=== PATIENT | male | born 1940 | race Two or more races ===

== ENCOUNTER 2016-12-02 15:53 | Inpatient (IN) | payer OTHER, MEDICAID ==
[~2016-12-02] VITALS: Ht 170.2 cm; Wt 85.3 kg
[~2016-12-02 15:53] MED LIST: UNK MEDS
[2016-12-02] MEDS ORDERED: GLIPIZIDE (16:01)
[2016-12-02] MEDS ORDERED: HYDROCHLOROTHIAZIDE (16:01)
[2016-12-02] MEDS ORDERED: ISOSORBIDE DINITRATE (16:01)
[2016-12-02] MEDS ORDERED: ALBUTEROL (16:01)
[2016-12-02] MEDS ORDERED: AMLODIPINE (16:01)
[2016-12-02 16:46] LABS: BASOPHILS % 0.7 % (0.0-2.0); EOSINOPHILS % 0.6 % (0.0-5.0); HEMATOCRIT. 34.8 % (42.0-52.0); HEMOGLOBIN. 11.9 g/dL (14.0-18.0); LYMPHOCYTES % 8.8 % (20.0-50.0); MEAN CORPUSCULAR HEMOGLOBIN 31.7 pg (28.0-32.0); MEAN CORPUSCULAR VOLUME 92.7 fL (80.0-94.0); MEAN PLATELET VOLUME 7.2 fl (7.4-10.4); MONOCYTES % 7.9 % (2.0-8.0); PLATELET 157 x1000/uL (130-400); RED BLOOD CELL COUNT 3.76 mill/uL (4.7-6.1)
[2016-12-02 16:51] LABS: INR 2.1; PROTHROMBIN TIME 21.7 sec
[2016-12-02 16:57] LABS: CARBON DIOXIDE 24 mEq/L (21-32); CHLORIDE 108 mEq/L (98-107)
[2016-12-02 17:01] LABS: TROPONIN I < 0.02 ng/mL (0.00-0.04)
[2016-12-02] MEDS ORDERED: FUROSEMIDE 40MG/4ML VIAL IV ONE (17:15)
[2016-12-02] MEDS ORDERED: LORAZEPAM 2MG/ML CPJ IV ONE (17:15)
[2016-12-02] MEDS ORDERED: ASPIRIN 81MG TABLET PO ONE (17:15)
[2016-12-02] MEDS ORDERED: NITROGLYCERIN 0.4MG TABLET SL SL ONE (17:30)
[2016-12-02 17:57] LABS: BG BASE EXCESS -4.8 mmol/L (-2.0-2.0); BG BILEVEL POS AIRWAY PRESSURE 15/5; BG CARBOXYHEMOGLOBIN 0.4 % (0.5-1.5); BG DEOXYHEMOGLOBIN 1.4 % (0.0-5.0); BG FRACTION INSPIRED OXYGEN 50; BG HCO3 ACT 18.1 mmol/L (22.0-26.0); BG METHEMOGLOBIN 0.4 % (0.0-1.5); BG OXYGEN SATURATION 98.6 % (92.0-98.5); BG OXYHEMOGLOBIN 97.8 % (94.0-97.0); BG PCO2 27.3 mmHg (35.0-45.0); BG PH 7.439 (7.350-7.450); BG PO2 159.4 mmHg (75.0-100.0); BG SAMPLE SITE RIGHT BRACHIAL; BG TOTAL HEMOGLOBIN 12.1 g/dL (12.0-18.0); BG VENT MODE MASK - BIPAP
[2016-12-02] MEDS ORDERED: HYDROCODONE/ACETAMINOPHEN 5/325MG TABLET PO PRN (18:45)
[2016-12-02] MEDS ORDERED: IPRATROPIUM/ALBUTEROL 0.5-3(2.5)MG/3ML NEB INH PRN (18:45)
[2016-12-02] MEDS ORDERED: HYDROMORPHONE HCL/PF 2MG/ML CPJ IV PRN (18:45)
[2016-12-02] MEDS ORDERED: DOCUSATE SODIUM 100MG CAPSULE PO PRN (18:45)
[2016-12-02] MEDS ORDERED: GUAIFENESIN 200MG/10ML SUGAR FREE UDC PO PRN (18:45)
[2016-12-02] MEDS ORDERED: NA PHOS,M-B/NA PHOS,DI-BA ENEMA 118ML PR PRN (18:45)
[2016-12-02] MEDS ORDERED: ONDANSETRON HCL 4MG/2ML VIAL IV PRN (18:45)
[2016-12-02] MEDS ORDERED: CLONIDINE 0.1MG TABLET PO PRN (18:45)
[2016-12-02] MEDS ORDERED: LORAZEPAM 2MG/ML CPJ IV PRN (18:45)
[2016-12-02] MEDS ORDERED: MAGNESIUM/ALUMINUM HYDROXIDE/SIMETHICONE 30ML UDC PO PRN (18:45)
[2016-12-02] MEDS ORDERED: ACETAMINOPHEN 325MG TABLET PO PRN (18:45)
[2016-12-02 21:05] VITALS: BP 123/67
[2016-12-02 22:00] VITALS: BP 123/63
[2016-12-02] MEDS: METHYLPREDNISOLONE SOD SUCC 125 MG/2 ML VIAL IV SCH (22:53)
[2016-12-02] MEDS: LEVOFLOXACIN 500MG PREMIX 100 ML IV SCH (23:54)
[2016-12-03] VITALS (12 sets, daily range): BP systolic 119–150; BP diastolic 61–88
[2016-12-03 00:21] LABS: TROPONIN I 0.03 ng/mL (0.00-0.04)
[2016-12-03] MEDS: DIPHENHYDRAMINE 50MG/ML VIAL IV PRN (00:55)
[2016-12-03] MEDS: METHYLPREDNISOLONE SOD SUCC 125 MG/2 ML VIAL IV SCH ×2 (04:55→09:54)
[2016-12-03] MEDS ORDERED: DEXTROSE 50% WATER 50ML SYRINGE IV PRN (05:45)
[2016-12-03 06:09] LABS: BASOPHILS % 0.3 % (0.0-2.0); HEMATOCRIT. 31.9 % (42.0-52.0); HEMOGLOBIN. 10.8 g/dL (14.0-18.0); LYMPHOCYTES % 9.6 % (20.0-50.0); MEAN CORPUSCULAR VOLUME 94.1 fL (80.0-94.0); MEAN PLATELET VOLUME 7.3 fl (7.4-10.4); MONOCYTES % 2.2 % (2.0-8.0); NEUTROPHILS % 87.9 % (40.0-76.0); PLATELET 137 x1000/uL (130-400); RED BLOOD CELL COUNT 3.39 mill/uL (4.7-6.1); RED CELL DISTRIBUTION WIDTH 14.7 % (11.6-14.6)
[2016-12-03 06:52] LABS: CARBON DIOXIDE 23 mEq/L (21-32); CHLORIDE 107 mEq/L (98-107)
[2016-12-03 07:03] LABS: HDL CHOLESTEROL 51 mg/dL (40-59); LDL CHOLESTEROL 68 mg/dL (5-100); T4 FREE 2.84 ng/dL (0.76-1.46); TROPONIN I < 0.02 ng/mL (0.00-0.04)
[2016-12-03] MEDS: BLOOD SUGAR DIAGNOSTIC STRIP TEST SCH ×4 (08:03→20:54)
[2016-12-03] MEDS: INSULIN LISPRO 100 UNITS/ML SUBCUT SCH ×4 (08:09→21:03)
[2016-12-03] MEDS ORDERED: FUROSEMIDE 40MG/4ML VIAL IV SCH (09:00)
[2016-12-03] MEDS: ASPIRIN 81MG EC TABLET PO SCH (09:21)
[2016-12-03] MEDS: ENOXAPARIN 30MG/0.3ML SYR SUBCUT SCH ×2 (09:24→20:56)
[2016-12-03 16:47] LABS: CREATINE KINASE 136 IU/L (39-308); CREATINE KINASE MB FRACTION 1.1 ng/mL (0.5-3.6); HDL CHOLESTEROL 53 mg/dL (40-59); LDL CHOLESTEROL 77 mg/dL (5-100); TROPONIN I < 0.02 ng/mL (0.00-0.04)
[2016-12-03] MEDS ORDERED: REGADENOSON 0.4 MG/5 ML IV NR (18:45)
[2016-12-03] MEDS: LEVOFLOXACIN 500MG PREMIX 100 ML IV SCH (23:55)
[2016-12-04] VITALS (8 sets, daily range): BP systolic 115–150; BP diastolic 59–77
[2016-12-04] MEDS: DIPHENHYDRAMINE 50MG/ML VIAL IV PRN (00:03)
[2016-12-04 01:23] LABS: CREATINE KINASE 106 IU/L (39-308); TROPONIN I < 0.02 ng/mL (0.00-0.04)
[2016-12-04 01:24] LABS: CREATINE KINASE MB FRACTION 1.3 ng/mL (0.5-3.6)
[2016-12-04 07:10] LABS: HEMATOCRIT. 33.9 % (42.0-52.0); HEMOGLOBIN. 11.7 g/dL (14.0-18.0); MEAN CORPUSCULAR HEMOGLOBIN 32.1 pg (28.0-32.0); MEAN CORPUSCULAR VOLUME 92.7 fL (80.0-94.0); MEAN PLATELET VOLUME 7.6 fl (7.4-10.4); PLATELET 164 x1000/uL (130-400); RED BLOOD CELL COUNT 3.66 mill/uL (4.7-6.1); RED CELL DISTRIBUTION WIDTH 14.7 % (11.6-14.6)
[2016-12-04] MEDS: BLOOD SUGAR DIAGNOSTIC STRIP TEST SCH ×3 (07:30→20:21)
[2016-12-04 08:02] LABS: CARBON DIOXIDE 25 mEq/L (21-32); CHLORIDE 107 mEq/L (98-107); CREATINE KINASE 79 IU/L (39-308); CREATINE KINASE MB FRACTION 1.3 ng/mL (0.5-3.6); TROPONIN I < 0.02 ng/mL (0.00-0.04)
[2016-12-04] MEDS: FUROSEMIDE 40MG/4ML VIAL IV SCH ×2 (08:37→17:16)
[2016-12-04] MEDS: ASPIRIN 81MG EC TABLET PO SCH (08:37)
[2016-12-04] MEDS: INSULIN LISPRO 100 UNITS/ML SUBCUT SCH ×4 (08:42→20:56)
[2016-12-04 08:48] LABS: PLATELET ESTIMATE NORMAL
[2016-12-04] MEDS ORDERED: RIVAROXABAN 20 MG TABLET PO SCH (17:00)
[2016-12-04] MEDS: GLIPIZIDE 10MG TABLET PO SCH (17:16)
[2016-12-04] MEDS: CARVEDILOL 25MG TABLET PO SCH (20:20)
[2016-12-04] MEDS ORDERED: TAMSULOSIN HCL 0.4MG SR CAPSULE PO SCH (21:00)
[2016-12-04] MEDS ORDERED: LEVOFLOXACIN 500MG PREMIX 100 ML IV SCH (21:00)
[2016-12-04] MEDS ORDERED: ZOLPIDEM TARTRATE 5MG TABLET PO PRN (21:00)
[2016-12-05] VITALS: BP 133/76
[2016-12-05 04:00] VITALS: BP 132/81
[2016-12-05] MEDS: BLOOD SUGAR DIAGNOSTIC STRIP TEST SCH (07:10)
[2016-12-05 07:15] LABS: BASOPHILS % 0.2 % (0.0-2.0); EOSINOPHILS % 0.1 % (0.0-5.0); HEMOGLOBIN. 12.7 g/dL (14.0-18.0); LYMPHOCYTES % 14.4 % (20.0-50.0); MEAN CORPUSCULAR HEMOGLOBIN 32.2 pg (28.0-32.0); MEAN CORPUSCULAR VOLUME 91.6 fL (80.0-94.0); MEAN PLATELET VOLUME 7.7 fl (7.4-10.4); MONOCYTES % 6.9 % (2.0-8.0); NEUTROPHILS % 78.4 % (40.0-76.0); PLATELET 190 x1000/uL (130-400); RED BLOOD CELL COUNT 3.93 mill/uL (4.7-6.1)
[2016-12-05 07:48] VITALS: BP 119/72
[2016-12-05 08:00] VITALS: BP 142/78
[2016-12-05] MEDS: ASPIRIN 81MG EC TABLET PO SCH (08:41)
[2016-12-05] MEDS: FUROSEMIDE 40MG/4ML VIAL IV SCH (08:41)
[2016-12-05] MEDS: CARVEDILOL 25MG TABLET PO SCH (08:57)
[2016-12-05] MEDS: GLIPIZIDE 10MG TABLET PO SCH (08:58)
[2016-12-05] MEDS ORDERED: POTASSIUM CHLORIDE 20MEQ TABLET SR PO NR (09:00)
[2016-12-05] MEDS: INSULIN LISPRO 100 UNITS/ML SUBCUT SCH (09:03)
[2016-12-05 10:28] VITALS: BP 119/72
[2016-12-06] MEDS ORDERED: LEVOFLOXACIN 500MG TABLET PO SCH (11:00)
== END 2016-12-05 11:40 | disposition home or self-care (01) | DRG 291 ==
LOC: ER 16:26 → 5EST 18:24 → ENRESERV 19:36 → 8WST 12-04 11:41
PROVIDERS: ADMIT Internal Medicine; ATTEND Internal Medicine
PROC: 5A09357 Assistance with Respiratory Ventilation, Less than 24 Consecutive Hours, Continuous Positive Airway Pressure (ICD-10-PCS; principal; 2016-12-02)
DX: I13.0 Hypertensive heart and chronic kidney disease with heart failure and stage 1 through stage 4 chronic kidney disease, or unspecified chronic kidney disease (principal); J96.00 Acute respiratory failure, unspecified whether with hypoxia or hypercapnia; I50.43 Acute on chronic combined systolic (congestive) and diastolic (congestive) heart failure; N17.0 Acute kidney failure with tubular necrosis; E46 Unspecified protein-calorie malnutrition; E87.2 Acidosis; I48.91 Unspecified atrial fibrillation; E11.22 Type 2 diabetes mellitus with diabetic chronic kidney disease; D64.9 Anemia, unspecified; E78.5 Hyperlipidemia, unspecified; J44.9 Chronic obstructive pulmonary disease, unspecified; M10.9 Gout, unspecified; Z79.01 Long term (current) use of anticoagulants; Z95.810 Presence of automatic (implantable) cardiac defibrillator; Z68.29 Body mass index [BMI] 29.0-29.9, adult; I25.2 Old myocardial infarction; Z87.440 Personal history of urinary (tract) infections; Z79.51 Long term (current) use of inhaled steroids; Z79.899 Other long term (current) drug therapy
CPT/HCPCS: 36415; 36600; 71010; 74000; 80048; 80053; 80061; 82375; 82550; 82553; 82805; 82962; 83036; 83605; 83880; 84439; 84443; 84484; 85025; 85379; 85610; 87040; 87086; 93005; 93306; 93970; 94660; 96374; 97162; 99291; A6261; J1200; J1650; J1815; J1940; J1956; J2060; J2930; J7030

== ENCOUNTER 2018-06-13 23:45 | Inpatient (IN) | payer OTHER, MEDICAID ==
[~2018-06-13] VITALS: Ht 167.6 cm; Wt 78.2 kg
[~2018-06-13 23:45] MED LIST changes: +ALBUTEROL; +AMLODIPINE; +BISM262T51 PO; +CARV25TA47 PO; +CLON0.1T MT; +DOCU240C PO; +ESOM40CA PO; +FURO40TA5 PO; +GLIMEPRIDE; +GLIPIZIDE; +HYDR-3280 PO; +HYDROCHLOROTHIAZIDE; +INSLIS SUBCUT; +ISOSORBIDE DINITRATE; +LOSA100T14 PO; +METF100092 PO; +MIRT15TA7 PO; +MOM PO; +SITA100T11 PO; +TRECIBA; +XARELTO
[2018-06-14] MEDS ORDERED: SODIUM CHLORIDE 0.9% 1,000 ML IV ONE ×2 (00:20→04:00)
[2018-06-14 00:48] LABS: EOSINOPHILS % 0.8 % (0.0-5.0); HEMATOCRIT. 45.8 % (42.0-52.0); HEMOGLOBIN. 15.5 g/dL (14.0-18.0); LYMPHOCYTES % 7.2 % (20.0-50.0); MEAN CORPUSCULAR HEMOGLOBIN 30.8 pg (28.0-32.0); MEAN CORPUSCULAR VOLUME 90.8 fL (80.0-94.0); MEAN PLATELET VOLUME 7.4 fl (7.4-10.4); MONOCYTES % 6.3 % (2.0-8.0); NEUTROPHILS % 84.7 % (40.0-76.0); PLATELET 281 x1000/uL (130-400); RED BLOOD CELL COUNT 5.05 mill/uL (4.7-6.1); RED CELL DISTRIBUTION WIDTH 16.1 % (11.6-14.6)
[2018-06-14 00:53] LABS: CHLORIDE 94 mEq/L (98-107)
[2018-06-14 01:01] LABS: BETA HYDROXYBUTYRATE 0.4 mMol/L (0.0-0.3)
[2018-06-14 01:19] LABS: INR 1.7
[2018-06-14 01:43] LABS: CLARITY URINE CLEAR (CLEAR); COLOR URINE DARK YELLOW (YELLOW); KETONES URINE NEGATIVE (NEGATIVE); LEUKOCYTE ESTERASE URINE NEGATIVE (NEGATIVE); NITRITE URINE NEGATIVE (NEGATIVE); OCCULT BLOOD URINE NEGATIVE (NEGATIVE); PROTEIN URINE NEGATIVE (NEGATIVE); SPECIFIC GRAVITY URINE 1.014 (1.005-1.030)
[2018-06-14] MEDS ORDERED: HALOPERIDOL LACTATE 5MG/ML VIAL IM ONE (01:45)
[2018-06-14] MEDS ORDERED: LORAZEPAM 2MG/ML CPJ IV NR (03:00)
[2018-06-14] MEDS ORDERED: INSULIN REGULAR (HUMULIN R) 300UNITS/3ML SUBCUT NR (03:00)
[2018-06-14] MEDS ORDERED: ONDANSETRON HCL 4MG/2ML INJ IV PRN (17:15)
[2018-06-14] MEDS ORDERED: IPRATROPIUM/ALBUTEROL 0.5-3(2.5)MG/3ML NEB INH PRN (17:15)
[2018-06-14] MEDS ORDERED: ACETAMINOPHEN 325MG TABLET PO PRN (17:15)
[2018-06-14] MEDS ORDERED: DEXTROSE 50% WATER 50ML SYRINGE IV PRN (17:15)
[2018-06-14] MEDS ORDERED: DIPHENHYDRAMINE 50MG/ML VIAL IV PRN (17:15)
[2018-06-14] MEDS ORDERED: LORAZEPAM 0.5MG TABLET PO PRN (17:15)
[2018-06-14] MEDS ORDERED: MAGNESIUM/ALUMINUM HYDROXIDE/SIMETHICONE 30ML UDC PO PRN (17:15)
[2018-06-14] MEDS ORDERED: CLONIDINE 0.1MG TABLET PO PRN (17:15)
[2018-06-14] MEDS ORDERED: INSULIN LISPRO 100 UNITS/ML SUBCUT SCH (18:20)
[2018-06-14] MEDS ORDERED: SODIUM CHLORIDE 0.9% 1,000 ML IV SCH (19:30)
[2018-06-14] MEDS ORDERED: LEVOFLOXACIN 500MG PREMIX 100 ML IV NR (19:31)
[2018-06-14] MEDS ORDERED: INSULIN GLARGINE UD 100 UNITS/ML SYR SUBCUT SCH (22:00)
[2018-06-14 23:20] VITALS: BP 117/60
[2018-06-15] VITALS: BP 117/60
[2018-06-15] MEDS: INSULIN GLARGINE UD 100 UNITS/ML SYR SUBCUT SCH ×2 (02:19→21:22)
[2018-06-15 04:07] VITALS: BP 144/63
[2018-06-15] MEDS: BLOOD SUGAR DIAGNOSTIC STRIP TEST SCH ×4 (07:20→21:19)
[2018-06-15 07:27] LABS: HEMATOCRIT. 38.5 % (42.0-52.0); HEMOGLOBIN. 12.9 g/dL (14.0-18.0); MEAN CORPUSCULAR HEMOGLOBIN 31.2 pg (28.0-32.0); MEAN PLATELET VOLUME 7.2 fl (7.4-10.4); PLATELET 203 x1000/uL (130-400); RED BLOOD CELL COUNT 4.14 mill/uL (4.7-6.1); RED CELL DISTRIBUTION WIDTH 16.2 % (11.6-14.6)
[2018-06-15 07:38] LABS: PHOSPHORUS 3.1 mg/dL (2.5-4.9)
[2018-06-15 08:00] VITALS: BP 117/58
[2018-06-15] MEDS: INSULIN LISPRO 100 UNITS/ML SUBCUT SCH ×4 (09:30→21:22)
[2018-06-15 12:00] VITALS: BP 100/80
[2018-06-15] MEDS ORDERED: POTASSIUM CHLORIDE INJ 40 MEQ in DEXT 5% WATER 500 ML IV NR (12:30)
[2018-06-15 16:00] VITALS: BP 112/54
[2018-06-15 16:36] LABS: PLATELET ESTIMATE NORMAL
[2018-06-15] MEDS: RIVAROXABAN 15 MG TABLET PO SCH (19:03)
[2018-06-15] MEDS ORDERED: LEVOFLOXACIN 500MG PREMIX 100 ML IV SCH (19:32)
[2018-06-15 20:00] VITALS: BP 129/62
[2018-06-15] MEDS: SODIUM CHL 0.45% + KCL 20MEQ/L 1,000 ML IV SCH (21:20)
[2018-06-16] VITALS: BP 128/57
[2018-06-16] MEDS: SODIUM CHL 0.45% + KCL 20MEQ/L 1,000 ML IV SCH ×2 (00:30→12:28)
[2018-06-16 04:00] VITALS: BP 141/70
[2018-06-16] MEDS: BLOOD SUGAR DIAGNOSTIC STRIP TEST SCH ×4 (06:43→21:03)
[2018-06-16] MEDS: INSULIN LISPRO 100 UNITS/ML SUBCUT SCH ×4 (07:50→21:05)
[2018-06-16 08:00] VITALS: BP 120/62
[2018-06-16 08:04] LABS: CHLORIDE 113 mEq/L (98-107)
[2018-06-16 08:10] LABS: BASOPHILS % 0.6 % (0.0-2.0); EOSINOPHILS % 2.3 % (0.0-5.0); HEMATOCRIT. 36.5 % (42.0-52.0); HEMOGLOBIN. 12.2 g/dL (14.0-18.0); LYMPHOCYTES % 7.7 % (20.0-50.0); MEAN CORPUSCULAR HEMOGLOBIN 30.9 pg (28.0-32.0); MEAN CORPUSCULAR VOLUME 92.8 fL (80.0-94.0); MEAN PLATELET VOLUME 7.2 fl (7.4-10.4); MONOCYTES % 7.9 % (2.0-8.0); NEUTROPHILS % 81.5 % (40.0-76.0); PLATELET 193 x1000/uL (130-400); RED BLOOD CELL COUNT 3.93 mill/uL (4.7-6.1); RED CELL DISTRIBUTION WIDTH 16.8 % (11.6-14.6)
[2018-06-16 08:17] LABS: PHOSPHORUS 1.5 mg/dL (2.5-4.9)
[2018-06-16] MEDS ORDERED: POTASSIUM CHLORIDE 20MEQ TABLET SR PO NR (10:30)
[2018-06-16] MEDS ORDERED: MAGNESIUM 2 G PREMIX 50 ML IV NR (11:00)
[2018-06-16 12:00] VITALS: BP 121/67
[2018-06-16] MEDS ORDERED: POTASSIUM PHOS,M-BASIC-D-BASIC 20 MMOL in DEXT 5% WATER 243.3333 ML IV NR (13:00)
[2018-06-16 15:21] LABS: CLARITY URINE CLEAR (CLEAR); COLOR URINE YELLOW (YELLOW); KETONES URINE NEGATIVE (NEGATIVE); LEUKOCYTE ESTERASE URINE NEGATIVE (NEGATIVE); NITRITE URINE NEGATIVE (NEGATIVE); OCCULT BLOOD URINE NEGATIVE (NEGATIVE); PROTEIN URINE NEGATIVE (NEGATIVE); SPECIFIC GRAVITY URINE 1.012 (1.005-1.030); UROBILINOGEN URINE 0.2 E.U./dL (0.2-1.0)
[2018-06-16] MEDS: RIVAROXABAN 15 MG TABLET PO SCH (17:51)
[2018-06-16] MEDS: POTASSIUM CHLORIDE INJ 30 MEQ in DEXT 5%/0.2% NACL 1,000 ML IV SCH ×2 (17:51→22:20)
[2018-06-16] MEDS ORDERED: FOLI-43 PO (19:50)
[2018-06-16] MEDS ORDERED: DESV50TA10 PO (19:50)
[2018-06-16] MEDS ORDERED: TAMS0.4C31 PO (19:50)
[2018-06-16] MEDS ORDERED: DULO30CA51 PO (19:50)
[2018-06-16] MEDS ORDERED: FEBU80TA PO (19:50)
[2018-06-16] MEDS ORDERED: METH2.5T PO (19:50)
[2018-06-16] MEDS ORDERED: FINA5TAB11 PO (19:50)
[2018-06-16 20:00] VITALS: BP 120/67
[2018-06-16] MEDS ORDERED: LEVOFLOXACIN 500MG PREMIX 100 ML IV SCH (20:00)
[2018-06-16] MEDS: INSULIN GLARGINE UD 100 UNITS/ML SYR SUBCUT SCH (22:20)
[2018-06-17 00:09] VITALS: BP 116/52
[2018-06-17 04:00] VITALS: BP 115/50
[2018-06-17 06:19] LABS: BASOPHILS % 0.3 % (0.0-2.0); HEMATOCRIT. 37.2 % (42.0-52.0); HEMOGLOBIN. 12.6 g/dL (14.0-18.0); LYMPHOCYTES % 8.8 % (20.0-50.0); MEAN CORPUSCULAR HEMOGLOBIN 31.8 pg (28.0-32.0); MEAN CORPUSCULAR VOLUME 93.9 fL (80.0-94.0); MEAN PLATELET VOLUME 7.3 fl (7.4-10.4); MONOCYTES % 9.7 % (2.0-8.0); NEUTROPHILS % 77.2 % (40.0-76.0); PLATELET 184 x1000/uL (130-400); RED BLOOD CELL COUNT 3.97 mill/uL (4.7-6.1); RED CELL DISTRIBUTION WIDTH 16.5 % (11.6-14.6)
[2018-06-17] MEDS: BLOOD SUGAR DIAGNOSTIC STRIP TEST SCH ×4 (06:33→20:35)
[2018-06-17] MEDS: POTASSIUM CHLORIDE INJ 30 MEQ in DEXT 5%/0.2% NACL 1,000 ML IV SCH (06:33)
[2018-06-17 06:38] LABS: PHOSPHORUS 1.3 mg/dL (2.5-4.9)
[2018-06-17 08:00] VITALS: BP 143/50
[2018-06-17] MEDS: INSULIN LISPRO 100 UNITS/ML SUBCUT SCH ×4 (08:32→20:35)
[2018-06-17] MEDS ORDERED: POTASSIUM PHOS,M-BASIC-D-BASIC 30 MMOL in DEXT 5% WATER 500 ML IV SCH (11:30)
[2018-06-17 12:00] VITALS: BP 132/63
[2018-06-17] MEDS: DEXT 5%/0.2% NACL 1,000 ML IV SCH ×2 (15:23→22:03)
[2018-06-17 16:00] VITALS: BP 123/73
[2018-06-17] MEDS: RIVAROXABAN 15 MG TABLET PO SCH (18:05)
[2018-06-17 20:00] VITALS: BP 129/63
[2018-06-17] MEDS: INSULIN GLARGINE UD 100 UNITS/ML SYR SUBCUT SCH (21:20)
[2018-06-18] VITALS: BP 126/66
[2018-06-18 04:00] VITALS: BP 120/63
[2018-06-18 07:00] LABS: BASOPHILS % 0.8 % (0.0-2.0); EOSINOPHILS % 4.9 % (0.0-5.0); HEMATOCRIT. 35.2 % (42.0-52.0); HEMOGLOBIN. 11.7 g/dL (14.0-18.0); LYMPHOCYTES % 10.7 % (20.0-50.0); MEAN CORPUSCULAR HEMOGLOBIN 31.1 pg (28.0-32.0); MEAN CORPUSCULAR VOLUME 93.3 fL (80.0-94.0); MONOCYTES % 12.5 % (2.0-8.0); NEUTROPHILS % 71.1 % (40.0-76.0); PLATELET 192 x1000/uL (130-400); RED BLOOD CELL COUNT 3.77 mill/uL (4.7-6.1); RED CELL DISTRIBUTION WIDTH 16.8 % (11.6-14.6)
[2018-06-18 07:24] LABS: PHOSPHORUS 1.8 mg/dL (2.5-4.9)
[2018-06-18] MEDS: INSULIN LISPRO 100 UNITS/ML SUBCUT SCH ×4 (07:50→20:46)
[2018-06-18 08:00] VITALS: BP 110/40
[2018-06-18 12:00] VITALS: BP 89/59
[2018-06-18] MEDS ORDERED: MAGNESIUM 2 G PREMIX 50 ML IV NR ×2 (12:00→21:00)
[2018-06-18] MEDS: BLOOD SUGAR DIAGNOSTIC STRIP TEST SCH ×3 (12:20→20:41)
[2018-06-18] MEDS: POTASSIUM PHOS,M-BASIC-D-BASIC 30 MMOL in DEXT 5% WATER 500 ML IV NR ×2 (12:26→13:21)
[2018-06-18] MEDS: DEXT 5%/0.2% NACL 1,000 ML IV SCH (13:24)
[2018-06-18 16:00] VITALS: BP 128/66
[2018-06-18] MEDS ORDERED: LEVOFLOXACIN 250MG PREMIX 50 ML IV SCH ×2 (16:00→22:30)
[2018-06-18] MEDS: RIVAROXABAN 15 MG TABLET PO SCH (17:30)
[2018-06-18 20:45] VITALS: BP 130/68
[2018-06-18] MEDS: INSULIN GLARGINE UD 100 UNITS/ML SYR SUBCUT SCH (21:12)
[2018-06-19] VITALS: BP 119/60
[2018-06-19] MEDS: DEXT 5%/0.2% NACL 1,000 ML IV SCH ×2 (01:18→14:35)
[2018-06-19 04:00] VITALS: BP 130/86
[2018-06-19] MEDS: BLOOD SUGAR DIAGNOSTIC STRIP TEST SCH ×4 (06:20→21:02)
[2018-06-19 06:36] LABS: BASOPHILS % 0.8 % (0.0-2.0); HEMATOCRIT. 34.8 % (42.0-52.0); HEMOGLOBIN. 11.8 g/dL (14.0-18.0); LYMPHOCYTES % 12.7 % (20.0-50.0); MEAN CORPUSCULAR HEMOGLOBIN 31.6 pg (28.0-32.0); MEAN PLATELET VOLUME 6.9 fl (7.4-10.4); MONOCYTES % 12.3 % (2.0-8.0); NEUTROPHILS % 68.2 % (40.0-76.0); PLATELET 219 x1000/uL (130-400); RED BLOOD CELL COUNT 3.74 mill/uL (4.7-6.1); RED CELL DISTRIBUTION WIDTH 16.7 % (11.6-14.6)
[2018-06-19 07:26] LABS: PHOSPHORUS 2.6 mg/dL (2.5-4.9)
[2018-06-19 08:00] VITALS: BP 131/44
[2018-06-19] MEDS: INSULIN LISPRO 100 UNITS/ML SUBCUT SCH ×4 (09:44→21:03)
[2018-06-19 12:43] VITALS: BP 139/78
[2018-06-19] MEDS: RIVAROXABAN 15 MG TABLET PO SCH (16:40)
[2018-06-19 17:06] VITALS: BP 146/83
[2018-06-19 20:00] VITALS: BP 128/57
[2018-06-19] MEDS: LEVOFLOXACIN 250MG PREMIX 50 ML IV SCH (21:02)
[2018-06-19] MEDS: INSULIN GLARGINE UD 100 UNITS/ML SYR SUBCUT SCH (21:03)
[2018-06-20] VITALS: BP 116/53
[2018-06-20 04:00] VITALS: BP 116/59
[2018-06-20] MEDS: BLOOD SUGAR DIAGNOSTIC STRIP TEST SCH ×4 (06:39→21:40)
[2018-06-20] MEDS: INSULIN LISPRO 100 UNITS/ML SUBCUT SCH ×4 (07:39→21:49)
[2018-06-20 08:00] VITALS: BP 123/69
[2018-06-20 09:19] LABS: BASOPHILS % 0.9 % (0.0-2.0); HEMATOCRIT. 35.2 % (42.0-52.0); HEMOGLOBIN. 11.9 g/dL (14.0-18.0); LYMPHOCYTES % 14.1 % (20.0-50.0); MEAN CORPUSCULAR HEMOGLOBIN 31.6 pg (28.0-32.0); MEAN CORPUSCULAR VOLUME 93.4 fL (80.0-94.0); MEAN PLATELET VOLUME 7.1 fl (7.4-10.4); MONOCYTES % 14.7 % (2.0-8.0); NEUTROPHILS % 66.3 % (40.0-76.0); PLATELET 266 x1000/uL (130-400); RED BLOOD CELL COUNT 3.77 mill/uL (4.7-6.1); RED CELL DISTRIBUTION WIDTH 16.5 % (11.6-14.6)
[2018-06-20 09:36] LABS: PHOSPHORUS 1.8 mg/dL (2.5-4.9)
[2018-06-20 12:00] VITALS: BP 127/67
[2018-06-20] MEDS ORDERED: LOPERAMIDE HCL 2MG CAPSULE PO PRN (12:45)
[2018-06-20] MEDS ORDERED: POTASSIUM PHOS,M-BASIC-D-BASIC 20 MMOL in DEXT 5% WATER 243.3333 ML IV NR (14:00)
[2018-06-20 16:00] VITALS: BP 122/75
[2018-06-20] MEDS: RIVAROXABAN 15 MG TABLET PO SCH (17:25)
[2018-06-20 20:00] VITALS: BP 147/73
[2018-06-20] MEDS: LEVOFLOXACIN 250MG PREMIX 50 ML IV SCH (21:39)
[2018-06-20] MEDS: INSULIN GLARGINE UD 100 UNITS/ML SYR SUBCUT SCH (21:49)
[2018-06-21] VITALS: BP 152/66
[2018-06-21 04:00] VITALS: BP 137/71
[2018-06-21] MEDS: BLOOD SUGAR DIAGNOSTIC STRIP TEST SCH ×4 (06:55→21:17)
[2018-06-21] MEDS: INSULIN LISPRO 100 UNITS/ML SUBCUT SCH ×4 (07:24→21:00)
[2018-06-21 07:57] LABS: PHOSPHORUS 2.4 mg/dL (2.5-4.9)
[2018-06-21 08:00] VITALS: BP 137/73
[2018-06-21 12:00] VITALS: BP 138/74
[2018-06-21] MEDS ORDERED: POTASSIUM-SODIUM PHOSPHATE POWDER PACKET PO NR (12:00)
[2018-06-21 16:00] VITALS: BP 123/76
[2018-06-21] MEDS: RIVAROXABAN 15 MG TABLET PO SCH (17:29)
[2018-06-21] MEDS ORDERED: LOPERAMIDE HCL 2MG CAPSULE PO PRN (17:45)
[2018-06-21 20:58] VITALS: BP 128/79
[2018-06-21] MEDS ORDERED: LEVOFLOXACIN 250MG TABLET PO SCH (21:00)
[2018-06-21] MEDS: INSULIN GLARGINE UD 100 UNITS/ML SYR SUBCUT SCH (21:18)
[2018-06-22] VITALS: BP 132/73
[2018-06-22 04:00] VITALS: BP 149/86
[2018-06-22] MEDS: BLOOD SUGAR DIAGNOSTIC STRIP TEST SCH ×3 (07:50→17:20)
[2018-06-22] MEDS: INSULIN LISPRO 100 UNITS/ML SUBCUT SCH ×3 (07:50→17:21)
[2018-06-22 08:00] VITALS: BP 125/67
[2018-06-22 08:19] LABS: HEMATOCRIT. 34.6 % (42.0-52.0); HEMOGLOBIN. 11.7 g/dL (14.0-18.0); MEAN CORPUSCULAR HEMOGLOBIN 31.5 pg (28.0-32.0); MEAN CORPUSCULAR VOLUME 93.2 fL (80.0-94.0); MEAN PLATELET VOLUME 6.4 fl (7.4-10.4); PLATELET 248 x1000/uL (130-400); RED BLOOD CELL COUNT 3.71 mill/uL (4.7-6.1); RED CELL DISTRIBUTION WIDTH 16.1 % (11.6-14.6)
[2018-06-22 09:00] LABS: PHOSPHORUS 2.5 mg/dL (2.5-4.9)
[2018-06-22] MEDS ORDERED: POTASSIUM-SODIUM PHOSPHATE POWDER PACKET PO SCH (11:15)
[2018-06-22] MEDS ORDERED: POTASSIUM CHLORIDE 20MEQ TABLET SR PO SCH (11:15)
[2018-06-22 12:33] VITALS: BP 122/59
[2018-06-22 14:13] LABS: PLATELET ESTIMATE NORMAL
[2018-06-22 16:00] VITALS: BP 151/61
[2018-06-22 16:21] VITALS: BP 151/61
[2018-06-22] MEDS: RIVAROXABAN 15 MG TABLET PO SCH (17:18)
== END 2018-06-22 18:29 | disposition home health service (06) | DRG 682 ==
LOC: ER 23:45 → 6WST 06-14 04:29 → ENRESERV 06-14 19:33 → 6WST 06-14 23:33
PROVIDERS: ADMIT Internal Medicine; ATTEND Internal Medicine
DX: N17.9 Acute kidney failure, unspecified (principal); G93.41 Metabolic encephalopathy; E87.0 Hyperosmolality and hypernatremia; I13.0 Hypertensive heart and chronic kidney disease with heart failure and stage 1 through stage 4 chronic kidney disease, or unspecified chronic kidney disease; R65.10 Systemic inflammatory response syndrome (SIRS) of non-infectious origin without acute organ dysfunction; F03.90 Unspecified dementia, unspecified severity, without behavioral disturbance, psychotic disturbance, mood disturbance, and anxiety; I48.91 Unspecified atrial fibrillation; E87.6 Hypokalemia; E11.22 Type 2 diabetes mellitus with diabetic chronic kidney disease; N18.9 Chronic kidney disease, unspecified; I50.9 Heart failure, unspecified; J45.909 Unspecified asthma, uncomplicated; E86.0 Dehydration; E83.42 Hypomagnesemia; E83.39 Other disorders of phosphorus metabolism; Z95.810 Presence of automatic (implantable) cardiac defibrillator; Z87.440 Personal history of urinary (tract) infections; Z95.0 Presence of cardiac pacemaker
CPT/HCPCS: 36415; 71045; 76770; 80048; 82010; 82570; 82962; 83036; 83735; 83935; 84100; 84156; 84300; 84484; 93005; 93970; 96361; 96372; 96374; 97116; 97162; 97166; 97530; 97535; 99284; 99285; C1893; J1630; J1815; J1956; J2060; J3475; J3480; J3490; J7030; J7050; J7060

== ENCOUNTER 2018-06-26 20:50 | Inpatient (IN) | payer OTHER, MEDICAID ==
[~2018-06-26] VITALS: Ht 167.6 cm; Wt 82.1 kg
[~2018-06-26 20:50] MED LIST changes: +DESV50TA10 PO; +DULO30CA51 PO; +FEBU80TA PO; +FINA5TAB11 PO; +FOLI-43 PO; +METH2.5T PO; +TAMS0.4C31 PO
[2018-06-26] MEDS ORDERED: SODIUM CHLORIDE 0.9% 1000ML BAG (SEPSIS BOLUS) IV ONE (22:00)
[2018-06-26 23:10] LABS: BASOPHILS % 0.7 % (0.0-2.0); EOSINOPHILS % 2.6 % (0.0-5.0); HEMATOCRIT. 34.3 % (42.0-52.0); HEMOGLOBIN. 11.5 g/dL (14.0-18.0); LYMPHOCYTES % 12.3 % (20.0-50.0); MEAN CORPUSCULAR HEMOGLOBIN 31.5 pg (28.0-32.0); MEAN CORPUSCULAR VOLUME 93.8 fL (80.0-94.0); MEAN PLATELET VOLUME 7.1 fl (7.4-10.4); MONOCYTES % 11.1 % (2.0-8.0); NEUTROPHILS % 73.3 % (40.0-76.0); PLATELET 261 x1000/uL (130-400); RED BLOOD CELL COUNT 3.65 mill/uL (4.7-6.1); RED CELL DISTRIBUTION WIDTH 15.9 % (11.6-14.6)
[2018-06-26 23:17] LABS: CHLORIDE 100 mEq/L (98-107)
[2018-06-26 23:19] LABS: INR 1.6; PROTHROMBIN TIME 16.4 sec (9.1-11.1)
[2018-06-26] MEDS ORDERED: DEXTROSE 10% WATER 500 ML IV ONE (23:30)
[2018-06-26] MEDS ORDERED: PIPERACILLIN/TAZ 3.375G PREMIX 50 ML IV ONE (23:45)
[2018-06-26] MEDS ORDERED: VANCOMYCIN 1 G PREMIX 200 ML IV ONE (23:45)
[2018-06-27 01:19] LABS: CLARITY URINE CLEAR (CLEAR); COLOR URINE YELLOW (YELLOW); KETONES URINE NEGATIVE (NEGATIVE); LEUKOCYTE ESTERASE URINE NEGATIVE (NEGATIVE); NITRITE URINE NEGATIVE (NEGATIVE); OCCULT BLOOD URINE NEGATIVE (NEGATIVE); PROTEIN URINE NEGATIVE (NEGATIVE); SPECIFIC GRAVITY URINE 1.006 (1.005-1.030); UROBILINOGEN URINE 0.2 E.U./dL (0.2-1.0)
[2018-06-27] MEDS ORDERED: SODIUM CHLORIDE 0.45% 1,000 ML IV SCH (05:12)
[2018-06-27] MEDS ORDERED: DIPHENHYDRAMINE 50MG/ML VIAL IV PRN (05:15)
[2018-06-27] MEDS ORDERED: GUAIFENESIN 200MG/10ML SUGAR FREE UDC PO PRN (05:15)
[2018-06-27] MEDS ORDERED: IPRATROPIUM/ALBUTEROL 0.5-3(2.5)MG/3ML NEB INH PRN (05:15)
[2018-06-27] MEDS ORDERED: LORAZEPAM 2MG/ML CPJ IV PRN (05:15)
[2018-06-27] MEDS ORDERED: ACETAMINOPHEN 325MG TABLET PO PRN (05:15)
[2018-06-27] MEDS ORDERED: MAGNESIUM/ALUMINUM HYDROXIDE/SIMETHICONE 30ML UDC PO PRN (05:15)
[2018-06-27] MEDS ORDERED: ONDANSETRON HCL 4MG/2ML INJ IV PRN (05:15)
[2018-06-27] MEDS ORDERED: CLONIDINE 0.1MG TABLET PO PRN (05:15)
[2018-06-27] MEDS ORDERED: DOCUSATE SODIUM 100MG CAPSULE PO PRN (05:15)
[2018-06-27] MEDS ORDERED: DEXTROSE 50% WATER 50ML SYRINGE IV PRN (05:15)
[2018-06-27] MEDS ORDERED: HYDROMORPHONE HCL/PF 2MG/ML CPJ IV PRN (05:15)
[2018-06-27] MEDS ORDERED: HYDROCODONE/ACETAMINOPHEN 5/325MG TABLET PO PRN (05:15)
[2018-06-27 06:15] LABS: CREATINE KINASE MB FRACTION 3.9 ng/mL (0.5-3.6)
[2018-06-27] MEDS: BLOOD SUGAR DIAGNOSTIC STRIP TEST SCH ×4 (07:10→20:38)
[2018-06-27 08:00] VITALS: BP 154/86
[2018-06-27 08:30] VITALS: BP 154/86
[2018-06-27] MEDS: ENOXAPARIN 40MG/0.4ML SYR SUBCUT SCH (08:30)
[2018-06-27] MEDS: ASPIRIN 81MG EC TABLET PO SCH (08:33)
[2018-06-27] MEDS: INSULIN LISPRO 100 UNITS/ML SUBCUT SCH ×4 (08:35→20:53)
[2018-06-27 10:43] VITALS: BP 154/86
[2018-06-27] MEDS: PIPERACILLIN/TAZ 3.375G PREMIX 50 ML IV SCH ×2 (10:58→16:44)
[2018-06-27] MEDS: DEXT 5%/0.45% NACL 1000ML 1,000 ML IV SCH (10:58)
[2018-06-27 12:00] VITALS: BP 144/79
[2018-06-27] MEDS: SODIUM CHLORIDE 0.9% INJ 3ML FLUSH IVF SCH ×2 (14:31→20:50)
[2018-06-27 15:29] LABS: CREATINE KINASE MB FRACTION 3.1 ng/mL (0.5-3.6)
[2018-06-27 16:00] VITALS: BP 106/42
[2018-06-27] MEDS ORDERED: VANCOMYCIN 1 G PREMIX 200 ML IV SCH (18:00)
[2018-06-27] MEDS ORDERED: VANCOMYCIN 1250MG in DEXTROSE 5% WATER 250ML IV SCH (18:00)
[2018-06-27 20:00] VITALS: BP 108/48
[2018-06-28] VITALS (8 sets, daily range): BP systolic 104–129; BP diastolic 40–72
[2018-06-28] MEDS: PIPERACILLIN/TAZ 3.375G PREMIX 50 ML IV SCH (02:28)
[2018-06-28] MEDS: SODIUM CHLORIDE 0.9% INJ 3ML FLUSH IVF SCH ×3 (05:54→21:38)
[2018-06-28] MEDS: BLOOD SUGAR DIAGNOSTIC STRIP TEST SCH ×4 (06:20→21:38)
[2018-06-28] MEDS: INSULIN LISPRO 100 UNITS/ML SUBCUT SCH ×4 (06:51→21:47)
[2018-06-28 08:50] LABS: HEMOGLOBIN. 9.9 g/dL (14.0-18.0); LYMPHOCYTES % 30.1 % (20.0-50.0); MEAN CORPUSCULAR HEMOGLOBIN 31.8 pg (28.0-32.0); MEAN CORPUSCULAR VOLUME 93.6 fL (80.0-94.0); MONOCYTES % 10.3 % (2.0-8.0); NEUTROPHILS % 55.6 % (40.0-76.0); PLATELET 232 x1000/uL (130-400); RED CELL DISTRIBUTION WIDTH 15.8 % (11.6-14.6)
[2018-06-28 09:03] LABS: CHLORIDE 108 mEq/L (98-107)
[2018-06-28 09:13] LABS: LDL CHOLESTEROL 33 mg/dL (5-100)
[2018-06-28 09:14] LABS: HDL CHOLESTEROL 31 mg/dL (40-59)
[2018-06-28 09:15] LABS: T4 FREE 2.48 ng/dL (0.76-1.46)
[2018-06-28] MEDS ORDERED: PIPERACILLIN/TAZ 2.25G PREMIX 50 ML IV SCH (10:00)
[2018-06-28] MEDS: ENOXAPARIN 40MG/0.4ML SYR SUBCUT SCH (10:25)
[2018-06-28] MEDS: ASPIRIN 81MG EC TABLET PO SCH (10:26)
[2018-06-28] MEDS: DEXT 5%/0.45% NACL 1000ML 1,000 ML IV SCH (10:30)
[2018-06-28] MEDS: SODIUM CHLORIDE 0.9% 1,000 ML IV SCH (17:00)
[2018-06-28] MEDS: INSULIN GLARGINE UD 100 UNITS/ML SYR SUBCUT SCH (21:46)
[2018-06-28 21:54] LABS: CLARITY URINE CLEAR (CLEAR); COLOR URINE YELLOW (YELLOW); KETONES URINE NEGATIVE (NEGATIVE); LEUKOCYTE ESTERASE URINE NEGATIVE (NEGATIVE); NITRITE URINE NEGATIVE (NEGATIVE); OCCULT BLOOD URINE NEGATIVE (NEGATIVE); PROTEIN URINE NEGATIVE (NEGATIVE); SPECIFIC GRAVITY URINE 1.015 (1.005-1.030); UROBILINOGEN URINE 0.2 E.U./dL (0.2-1.0)
[2018-06-29 04:00] VITALS: BP 116/58
[2018-06-29] MEDS: SODIUM CHLORIDE 0.9% 1,000 ML IV SCH (05:05)
[2018-06-29] MEDS: SODIUM CHLORIDE 0.9% INJ 3ML FLUSH IVF SCH ×3 (06:00→21:43)
[2018-06-29] MEDS: BLOOD SUGAR DIAGNOSTIC STRIP TEST SCH ×4 (06:07→21:45)
[2018-06-29] MEDS: INSULIN LISPRO 100 UNITS/ML SUBCUT SCH ×4 (06:20→22:00)
[2018-06-29 06:51] LABS: EOSINOPHILS % 3.6 % (0.0-5.0); HEMATOCRIT. 28.6 % (42.0-52.0); HEMOGLOBIN. 9.7 g/dL (14.0-18.0); LYMPHOCYTES % 33.8 % (20.0-50.0); MEAN CORPUSCULAR HEMOGLOBIN 31.4 pg (28.0-32.0); MEAN CORPUSCULAR VOLUME 92.8 fL (80.0-94.0); MEAN PLATELET VOLUME 6.9 fl (7.4-10.4); MONOCYTES % 9.9 % (2.0-8.0); NEUTROPHILS % 51.7 % (40.0-76.0); PLATELET 248 x1000/uL (130-400); RED BLOOD CELL COUNT 3.09 mill/uL (4.7-6.1); RED CELL DISTRIBUTION WIDTH 16.6 % (11.6-14.6)
[2018-06-29 08:00] VITALS: BP 126/71
[2018-06-29] MEDS: ASPIRIN 81MG EC TABLET PO SCH (08:32)
[2018-06-29] MEDS: ENOXAPARIN 40MG/0.4ML SYR SUBCUT SCH (08:33)
[2018-06-29 12:00] VITALS: BP 140/72
[2018-06-29] MEDS ORDERED: POTASSIUM CHLORIDE 20MEQ/PACKET PO NR (12:00)
[2018-06-29] MEDS ORDERED: MAGNESIUM 2 G PREMIX 50 ML IV NR (13:30)
[2018-06-29 16:00] VITALS: BP 129/61
[2018-06-29] MEDS: INSULIN GLARGINE UD 100 UNITS/ML SYR SUBCUT SCH (22:01)
[2018-06-30] MEDS: BLOOD SUGAR DIAGNOSTIC STRIP TEST SCH ×3 (06:55→16:59)
[2018-06-30] MEDS: INSULIN LISPRO 100 UNITS/ML SUBCUT SCH ×3 (06:59→16:59)
[2018-06-30 07:03] LABS: BASOPHILS % 0.7 % (0.0-2.0); EOSINOPHILS % 4.1 % (0.0-5.0); HEMATOCRIT. 28.9 % (42.0-52.0); HEMOGLOBIN. 9.8 g/dL (14.0-18.0); LYMPHOCYTES % 30.9 % (20.0-50.0); MEAN CORPUSCULAR HEMOGLOBIN 31.5 pg (28.0-32.0); MEAN CORPUSCULAR VOLUME 92.9 fL (80.0-94.0); MEAN PLATELET VOLUME 6.9 fl (7.4-10.4); MONOCYTES % 10.9 % (2.0-8.0); NEUTROPHILS % 53.4 % (40.0-76.0); PLATELET 252 x1000/uL (130-400); RED BLOOD CELL COUNT 3.11 mill/uL (4.7-6.1); RED CELL DISTRIBUTION WIDTH 16.7 % (11.6-14.6)
[2018-06-30] MEDS: SODIUM CHLORIDE 0.9% INJ 3ML FLUSH IVF SCH ×2 (07:04→14:00)
[2018-06-30 07:47] LABS: CHLORIDE 115 mEq/L (98-107)
[2018-06-30 08:01] LABS: PHOSPHORUS 1.8 mg/dL (2.5-4.9)
[2018-06-30] MEDS: ASPIRIN 81MG EC TABLET PO SCH (08:29)
[2018-06-30] MEDS: ENOXAPARIN 40MG/0.4ML SYR SUBCUT SCH (08:29)
[2018-06-30] MEDS ORDERED: SODIUM PHOS,M-BASIC-D-BASIC 20 MM in DEXT 5% WATER 243.3333 ML IV NR (10:00)
[2018-06-30 12:00] VITALS: BP 149/77
[2018-06-30 13:08] LABS: *CREATININE RANDOM URINE 38.4 mg/dL (Not Estab.); MICROALBUMIN RANDOM URINE 4.4 ug/mL (Not Estab.)
[2018-06-30 13:16] VITALS: BP 149/77
[2018-06-30 16:00] VITALS: BP 139/75
== END 2018-06-30 19:15 | disposition home or self-care (01) | DRG 70 ==
LOC: ER 20:50 → 8WST 06-27 01:03 → EDBEDREQTM 06-27 01:06 → EDBEDREQSVC 06-27 01:06 → EDBEDREQ 06-27 01:06 → ENRESERV 06-27 04:46 → 8WST 06-27 09:23
PROVIDERS: ADMIT Internal Medicine; ATTEND Internal Medicine
DX: G93.41 Metabolic encephalopathy (principal); E43 Unspecified severe protein-calorie malnutrition; E87.2 Acidosis; N17.9 Acute kidney failure, unspecified; E11.649 Type 2 diabetes mellitus with hypoglycemia without coma; D64.9 Anemia, unspecified; F03.90 Unspecified dementia, unspecified severity, without behavioral disturbance, psychotic disturbance, mood disturbance, and anxiety; I11.0 Hypertensive heart disease with heart failure; I25.10 Atherosclerotic heart disease of native coronary artery without angina pectoris; I48.91 Unspecified atrial fibrillation; I50.9 Heart failure, unspecified; Z79.4 Long term (current) use of insulin; Z68.27 Body mass index [BMI] 27.0-27.9, adult; Z95.810 Presence of automatic (implantable) cardiac defibrillator
CPT/HCPCS: 36415; 71045; 80048; 80061; 82043; 82550; 82553; 82570; 82962; 83605; 83735; 84100; 84145; 84439; 84443; 84484; 93005; 96365; 97161; 97166; 99291; J1650; J1815; J2543; J3370; J3475; J3490; J7030; J7040; J7060